=== PATIENT | female | born 1980 | race American Indian/Alaskan Native ===

== ENCOUNTER 2021-04-04 09:08 | Outpatient (CLI) | payer OTHER ==
--- NOTE | 2021-04-04 11:20 | Mammography Report ---
BILATERAL DIGITAL DIAGNOSTIC MAMMOGRAM CONVENTIONAL, 04/04/2021 RIGHT LIMITED BREAST ULTRASOUND CLINICAL INFORMATION / INDICATION: Patient presents for evaluation of an area of focal pain and palp able concern in the right breast. TECHNIQUE: Digital bilateral mammographic imaging was performed. Limited ultrasound was performed. COMPARISON: None available FINDINGS: Breast Density: The breasts are heterogeneously dense, which may obscure small masses. MAMMOGRAPHIC FINDINGS: No dominant mass, suspicious calcifications, or architectural distortion in ei ther breast. There is no mammographic abnormality to account for the area of focal pain and palpable concern in the right breast, therefore targeted right breast ultrasound was subsequently performed. ULTRASOUND FINDINGS: Targeted ultrasound evaluation was performed of the area of interest. Targeted ultrasound of the area of palpable concern in the subareolar right breast reveals a hypoechoic proba ble intraductal mass measuring up to 1.0 x 0.4 x 0.4 cm. Vascularity is noted along the periphery, bu t no definite internal vascularity is seen. IMPRESSION: 1. A probable intraductal mass is seen at the site of palpable concern in the subareolar right breast . This is considered low suspicion for malignancy, ultrasound-guided biopsy is recommended. Follow up recommendation: Biopsy BI-RADS Category 4: Suspicious for Malignancy. A "normal" or negative report should not discourage follow up or biopsy of a clinically significant f inding. A written summary of these findings will be mailed to the patient. The patient will be entered into a mammography reporting system which will generate a reminder letter for the patient's next appointmen t at the appropriate interval. According to the [employer], yearly mammograms are recommended starting at age 40 and continuing as long as a woman is in good health. Breast MRI is recommended for women with an ronak roximately 20-25% or greater lifetime risk of breast cancer, including women with a strong family his tory of breast or ovarian cancer and women who have been treated for Hodgkin's disease. Signer Name: Ada Martin MD Signed: 04/04/2021 11:15 AM Workstation Name: [id number]
== END 2021-04-04 09:09 | disposition home or self-care (01) ==
LOC: MAMMO 09:08
PROVIDERS: ATTEND Family Medicine
DX: N63.10 Unspecified lump in the right breast, unspecified quadrant (principal); N64.4 Mastodynia
CPT/HCPCS: 77066

== ENCOUNTER 2021-04-24 10:08 | Outpatient (CLI) | payer OTHER ==
--- NOTE | 2021-04-24 11:32 | Ultrasound Report ---
ULTRASOUND-GUIDED CORE NEEDLE BIOPSY Right BREAST WITH CLIP PLACEMENT INDICATION: Right subareolar 3:00 mass. FINDINGS: Informed consent was obtained. The lesion within the right breast at the 3:00 subareolar location was identified with ultrasound. The overlying skin was cleansed with chloro prep and local anesthesia wa s obtained with a 1% lidocaine solution. Under ultrasound guidance a 14-gauge spring loaded core biop sy needle was advanced to the lesion. A total of 4 core samples were obtained. A U-shaped biopsy gretta er was placed to gretta the site of the biopsy. Specimen samples were placed in formalin [facility]. Patient tolerated the procedure well and no immediate complications were identified. A post procedure mammogram demonstrates accurate placement of the biopsy marker. IMPRESSION: Technically successful ultrasound guided core biopsy of right breast 3:00 subareolar lesion with plac ement of a U-shaped biopsy marker. An addendum will be added to this report once pathology results are available. Signer Name: Tato Harris MD Signed: 04/24/2021 11:27 AM Workstation Name: [id number]
--- NOTE | 2021-04-24 11:34 | Mammography Report ---
RIGHT DIAGNOSTIC MAMMOGRAM INDICATION: Status post ultrasound guided core biopsy of right subareolar breast mass. COMPARISON: 04/04/2021. FINDINGS: Right breast CC and LM projection mammograms were obtained. These document expected locatio n of a U-shaped biopsy marker in the right subareolar breast at site of recent ultrasound guided core biopsy. IMPRESSION: Right breast mammograms documenting accurate location of U shaped biopsy marker at site of recent ult rasound-guided core biopsy at the 3:00 subareolar location. BI-RADS Category 4: Suspicious for Malignancy. Signer Name: Tato Harris MD Signed: 04/24/2021 11:29 AM Workstation Name: [id number]
== END 2021-04-24 10:09 | disposition home or self-care (01) ==
LOC: SPVWC 10:08
PROVIDERS: ATTEND Family Medicine
DX: N63.12 Unspecified lump in the right breast, upper inner quadrant (principal); R92.8 Other abnormal and inconclusive findings on diagnostic imaging of breast; N64.4 Mastodynia; Z79.899 Other long term (current) drug therapy
CPT/HCPCS: 88305